=== PATIENT | female | born 1980 | race Caucasian/White ===

== ENCOUNTER 2019-03-28 09:00 | Outpatient (RCR) | payer BC, SELFPAY ==
--- NOTE | 2019-03-28 09:05 | BH.SGPN.GN ---
Behaviors/Verbalizations/Mental Status: []Client alert and oriented, neatly dressed and groomed. Eye contact good. Motor activity appropriate. Speech tangential. Affect congruent to topics being discussed, mood depressed. Thoughts linear, logical, no signs of hallucinations or delusions. Reviewed client?s symptom tracker, client indicated a 5/5 for thoughts of suicide and 2/5 for risk. Client reported this is her baseline and that I would never do it. Client Response/Progress/Benefit: []Client responded somewhat well to session, first day in IOP and trying to assimilate to the group environment. Client reports feeling ?depressed? today and shared she would like to get ?a life worth living? as her goal for IOP. Client shared she came to IOP from another IOP and stated she had little progress while she was in that program. Client shared ?everyone else was getting better and I was going nowhere.? Client reported she has daily suicidal ideations, low energy, a depressed mood, and difficulty with her relationships. Client also has a chronic medical condition that exacerbates her depressive symptoms. Client received supportive, encouraging statements from peers. Client appeared to benefit from gaining support and normalizing her symptoms. Client?s first day in IOP. Client to continue IOP to prevent decompensation and maintain safety.
--- NOTE | 2019-03-28 10:20 | BH.SGPN.GN ---
Behaviors/Verbalizations/Mental Status: [] Eye contact is good. Motor activity is appropriate. Appearance is casual. Speech is Appropriate. Mood is anxious. Affect is congruent. Thoughts are linear and logical. No evidence of psychosis. Client Response/Progress/Benefit: [] Pt was an active participant in group discussion and activity. Asked several questions about best way to take notes. Very focused on note-taking. Processed quote of the day with peers. Group worked together to identify barriers to making changes or taking action in their lives which included; lack of self-awareness, old habits, one's mindset, fear of failure, negative emotions (depression, anxiety, etc..), lack of resources, and other people. Group also identified that benefits of change which included; improved relationships, increased communication, improved mental wellness, increased confidence, and feelings of accomplishment. Discussion on the costs of not taking action or making changes which included; being stuck, no growth, lose friendships, impairs functioning, and not changes is a form of self-sabotage. Pt attentive during psychoeducation on the zones of change. Benefited from group through awareness of barriers and benefits to taking action towards mental wellness. Narrative Note: []
--- NOTE | 2019-03-28 11:23 | BH.SGPN.GN ---
Behaviors/Verbalizations/Mental Status: [Client alert and oriented. Appearance is casual, appropriate grooming. Eye contact good, at times appearing intense. Motor activity WNL. Speech appropriate rate and tone, at times becoming off topic or interrupting other. Affect congruent. mood depressed, anxious. Thoughts linear, logical, no signs of hallucinations or delusions.] Client Response/Progress/Benefit: [Pt first day of the IOP program and remained receptive of information discussed during Taking Action group. This was evidenced by input provided and questions Pt asked. She benefitted from reflecting upon the mental health benefits of taking small actionable steps towards promoting healthy change in daily life. Pt struggled at times to maintain focus on internal locus of control, however made progress in ability to challenge herself to when given feedback and identify internal barriers to change. Pt able to work with the group on completing the example Change Action Plan and apply the skills learned to her own Action Plan. Pt identified wanting to take action in her life by decreasing isolation. Shared a small step she can take as reaching out to supports. Pt shared this would help increase positive attitude and noted that her and best friend can help as a means of accountability. Recommended continued IOP tx to prevent decompensation, decrease anxiety, and increased ?knowledge of healthy coping skills.] Narrative Note: []
--- NOTE | 2019-03-28 14:58 | BH.COMM ---
Communication Note - Communication with Client Communication Note: Spoke with pt's therapist Cathi Barr at previous IOP at [facility]. ALEXUS in the chart. Per therapist pt started in IOP around 08/2018 in DBT IOP and then stepped down to ACT IOP and then eventually to DBT skills group. Reports that due to decompensation she was re-admitted to DBT IOP and eventually discharged on 03/07/19. Per therapist pt has a chronic history of passive suicidal ideations, however pt's primary challenge has been managing interpersonal relationships which has exacerbated her MH symptoms.
--- NOTE | 2019-03-28 15:04 | BH.COMM_ITS ---
Communication Note - Communication with Client Communication Note: Spoke with pt's therapist Cathi Barr at previous IOP at [facility]. ALEXUS in the chart. Per therapist pt started in IOP around 08/2018 in DBT IOP and then stepped down to ACT IOP and then eventually to DBT skills group. Reports that due to decompensation she was re-admitted to DBT IOP and eventually discharged on 03/07/19. Per therapist pt has a chronic history of passive suicidal ideations, however pt's primary challenge has been managing interpersonal relationships which has exacerbated her MH symptoms.
--- NOTE | 2019-03-31 09:05 | BH.SGPN.GN ---
Behaviors/Verbalizations/Mental Status: []Client alert and oriented, neatly dressed and groomed. Eye contact good. Motor activity appropriate. Speech within normal limits. Affect flat-tearful, mood depressed. Thoughts linear, logical, no signs of hallucinations or delusions. Reviewed client?s symptom tracker, client met with her individual therapist prior to process group. Client's symptom tracker scores for suicidal ideation and risk were within client's baseline. Client Response/Progress/Benefit: []Client responded well to session, attentive throughout session. Client reports feeling ?depressed? today. Client identified her mental health wins which were going to the pool yesterday as a form of relaxation and doing gardening work. Client shared her current stressor is that she has plans to spend time with her best friend this weekend, but client is anxious and ?I?m trying to weasel my way out of it.? Client acknowledged self-sabotaging behaviors in the past included avoiding supports and pleasurable activities. Client recognized that her anxiety is triggering an avoidance response and that if she engages in this behavior it will only provide temporary relief. Client was encouraged by this quality facilitator and her peers to challenge herself to face the anxiety head on and ?do this anxious thing.? Client stated if she goes she will feel better, but she is still on the fence about following through. Client appeared to benefit from gentle challenging and support from group. Progress limited as client just started IOP.
--- NOTE | 2019-03-31 10:13 | BH.SGPN.GN ---
Behaviors/Verbalizations/Mental Status: [Client alert and oriented, casual dress, hygiene tended to. Eye contact good. Motor activity appropriate. Speech within normal limits. Affect congruent, mood anxious, dysthymic. Thoughts linear, logical, no signs of hallucinations or delusions.] Client Response/Progress/Benefit: [Pt receptive to session, provided input and remained an active listener throughout discussion on stress. Pt struggles with focusing on externals in group environment though is making strides in improving ability to be challenged in this area. Able to brainstorm with the group positive and negative aspects of stress on physical and mental health. Pt participated in identifying current stressors impacting mental health. Pt's current stressors include: mental health, self-confidence, finances, relationship with , father, and children, health issues, and difficulties finding time for self-care. Appeared to benefit from gaining awareness of own current stressors and learning about the impact stress has on overall wellbeing. Progress noted in improved ability to identify impact of stressors on maintaining mental health and wellbeing. Recommended continued IOP tx to improve healthy coping skills, improve mood stability, and prevent decompensation.] Narrative Note: []
--- NOTE | 2019-03-31 11:28 | BH.MDN_ITS ---
Multi-Disciplinary Note - Note 30-min Individual Time Started:: 08:41 Date: 03/31/19 Purpose of session/treatment goals addressed:: The purpose of this session was to begin building rapport, as well as assess Client perception of current stressors, symptoms, supports, and means for coping. Another goal was to work with client to discuss expectations for treatment and begin creating treatment goals. Eye Contact:: Good Motor Activity:: Appropriate Appearance:: Casual Speech:: Rambling Mood:: Anxious, Depressed Affect:: Full Thoughts:: Circular - often returning to topic of her physical illness, No evidence of hallucinations/delusions noted Staff Interventions:: Therapist asked open-ended and furthering questions to gather information regarding client current symptoms, stressors, and identified supports. Used active and reflective listening, as well as empathic responses to provide support and normalize Client concerns and frustrations regarding management of ongoing mental health sx. Discussed with Client current means for coping and utilized OK techniques to assist Client with identifying and creating treatment goals. Client Response:: Pt receptive of session, actively engaged throughout and willing to openly discuss current symptoms, stressors, and events leading up to admission to IOP program. Pt reports that she forgot she had been scheduled to meet with this therapist at 0815am this morning and indicated that when becoming overwhelmed she tends to forget about appointments. Reviewed strategies for improving ability to make scheduled appointments on time such as using a business continuity planner or alarm on phone. Pt appearing receptive of these aides. Discussed with pt her expectations for IOP tx and the program format, as well as reviewed pt perspective of circumstances leading to admission to IOP program. Pt indicates that she had previously been attending various mental health programs at [facility], including their DBT intensive outpatient program and skills group. Reports these were somewhat successful but that she continues to struggle with significant anxiety and depression related to medical issues that have been becoming increasingly problematic over the past 4 years. Pt reports chronic passive thoughts of with thoughts of crashing her car into a light pool. Indicates these thoughts are fleeting in nature and that she has no active plans or intent of acting on thoughts. Reports her children are her largest motivations to life and source of meaning in her life. Additionally, endorses sx of skin picking (primarily at night), isolation, hopelessness, increased fatigue, and ruminating thoughts causing panic and anxiety. Pt did well to identify what has worked in past therapeutic settings as well as what she would like to focus on while in IOP program. Reports wanting to increase acceptance of medical conditions and learn to live a happy life with them, increase self- confidence, and better cope with anxiety. Risks/Concerns:: Pt reports a hx of chronic passive SI with fleeting thoughts of crashing her car; however, indicates no intention to act on these thoughts. Denies HI. Reports her children are her primary protective factors. Indicates an ability to maintain safety. Progress Toward Goals/Plan:: Pt new to IOP program and is therefore still adjusting to the group setting, limiting progress. She has however done well to remain engaged and provided input throughout. Pt expressed motivation to improve ability to manage mental health symptoms, specifically use of radical acceptance. Additionally, identified goals of improving overall self-confidence and ability to better regulate emotions. Recommended continued IOP to began identifying strategies to improve emotion regulation, decrease depression and anxiety, and prevent decompensation.
--- NOTE | 2019-03-31 11:28 | BH.MTP ---
Master Treatment Plan - Patient Information Program Physician:: Dr. Tony Dukes Primary Therapist:: GODWIN Currie - Psychiatric Diagnoses Psychiatric Diagnoses:: Persistent Depressive Disorder; General Anxiety Disorder; chronic adjustment disorder with anxiety; personality disorder with borderline traits Diagnosis Code(s):: F34.9 - Estimated LOS Estimated LOS (in weeks):: 6 Problem/Goal #1 - Problem/Goal #1 Stated Goal:: Client will decrease depressive symptoms causing agitation, isolation, suicidal ideations, anhedonia, poor self-esteem, and negative thoughts due to Persistent Depressive Disorder through Intensive Outpatient Program. Description of Barriers: hopelessness, several medical problems recently increasing in severity, tense relationship with her father, unable to work due to medical issues, financial strain, dificulties in parenting her son who has been diagnosed with behavioral issues related ODD. Functional Impact: Daily functioning is impacted by depression AEB reported isolation, decreased energy to complete daily tasks, passive SI, inability to work associated with depression and ongoing medical issues. Pt reports agitation secondary to anxiety and depressive sx, increased avoidance, and difficulties in regulating emotions which has created relationship tension on occasion. Goal Relevant Strengths/Supports: Pt is resilient and reports motivation to improve mental health, she is consistent with attendance, determined, willing to advocate for self, compassionate - Objectives Objective #1 Stated Objective: Pt will decrease depressive symptoms AEB pt?s score on the DSM 5 cross-cutting measure and improve pt?s daily functioning. Interventions: Through groups and individual therapy, pt will be provided with education on cognitive distortions, mistaken beliefs, and identifying and combating negative self-talk. Therapist will assist pt with getting back into the activities she once enjoyed as well as increasing healthy coping strategies. Discharge Criteria: Pt will have met this goal when pt?s score on the DSM 5 cross cutting measure for depression has been decreased and per pt?s report daily functioning has improved. Target Date: 05/16/19 Review Date: 04/29/19 Objective #2 Stated Objective: Client will learn and utilize 2-3 healthy coping strategies to manage depressive symptoms. Interventions: Therapist will assist client in learning internal coping strategies to manage depressive symptoms, along with helping client identify triggers. Discharge Criteria: Client will have achieved this goal when can verbalize and has practiced at least 2 healthy coping strategies. Target Date: 05/16/19 Review Date: 07/12/19 Problem/Goal #2 - Problem/Goal #2 Stated Goal:: Client will reduce overall frequency, intensity, and duration of anxiety causing frequent rumination and mood instability so that daily functioning is not impaired. Description of Barriers: hopelessness, several medical problems recently increasing in severity causing influx of stress/anxiety, dificulties in parenting her son who has been diagnosed with behavioral issues related ODD which contributes to anxiety, low self-esteem, difficullties believing she has any control over her anxious thoughts. Functional Impact: Daily functioning is impacted by depression AEB reported isolation, decreased energy to complete daily tasks, passive SI, inability to work associated with depression and ongoing medical issues. Pt reports agitation secondary to anxiety and depressive sx, increased avoidance, and difficulties in regulating emotions which has created relationship tension on occasion. Goal Relevant Strengths/Supports: Pt is resilient and reports motivation to improve mental health, she is consistent with attendance, determined, willing to advocate for self, compassionate - Objectives Objective #1 Stated Objective: Client will manage moments of increased stress and anxiety by learning to identify 2-3 warning signs and triggers for when she is becoming overwhelmed and implement 2-3 calming skills and problem solving strategies to realistically addressing worries. Interventions: Therapist will encourage client to use self-awareness strategies and assist client in identifying times of day, or specific thinking patterns indicating potential warning signs/triggers for increased anxiety. Therapist will teach client problem-solving strategies involving defining a problem, brainstorming solutions, selecting and implementing various solutions as well as calming interventions for reducing anxiety. Discharge Criteria: Client will have met this goal when can identify at least 2 warning signs and 2 triggers for increased stress and anxiety. When recognizing warning signs pt will be able to implement 2-3 problem solving and calming strategies for reducing anxiety and realisticly addressing worries. Target Date: 05/16/19 Review Date: 04/29/19 Objective #2 Stated Objective: Pt will decrease anxious symptoms AEB pt?s score on the DSM 5 cross-cutting measure improve pt?s daily functioning. Interventions: Through groups and individual therapy, pt will be provided education about anxiety?s impact on body and common physiological reaction to anxiety. Therapist will teach pt appropriate breathing techniques and build healthy coping skills to manage daily anxieties. Discharge Criteria: Pt will have met this goal when pt?s score on the DSM 5 cross cutting measure for anxiety has been decreased and per pt?s report daily functioning has improved. Target Date: 05/16/19 Review Date: 04/29/19
--- NOTE | 2019-04-01 10:15 | BH.SGPN.GN ---
Behaviors/Verbalizations/Mental Status: []Client alert and oriented, neatly dressed and groomed. Eye contact good. Motor activity appropriate. Speech within normal limits. Affect flat, mood anxious, dysthymic. Thoughts linear, logical, no signs of hallucinations or delusions. Client Response/Progress/Benefit: []Client responded well to session, attentive and engaged throughout. Client commented on the quote and shared to overcome anxiety one must face anxious situations. Client able to provide input to different types of anxiety disorders as well as the difference between ?normal? anxiety and anxiety disorders. Client helped the group identify examples of the various ways anxiety manifests and symptoms associated with thoughts, physical symptoms, and safety behaviors. Client gained awareness of her physical symptoms which included: stomach pain, throbbing heart, headaches, sweaty hands, shaking, runny stool, and twitching eyes. Client also identified safety behaviors she has engaged in that provide short term relief but increase anxiety over time. Client?s safety behaviors included: not responding to people right away, canceling plans, and isolating. Client appeared to benefit from gaining insight to how her anxiety manifests itself. Client?s first week in IOP, so no significant progress to document. Client to continue IOP to prevent decompensation, maintain safety, and increase mood stability.
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
--- NOTE | 2019-04-01 15:16 | BH.DR.ITP ---
Initial Treatment Plan - Patient Information Visit Information: ADMISSION DATE: 03/28/19 EXPECTED LOS: 4-6 weeks Diagnoses:: Persistent depressive disorder; HEMANT; chronic adjustment disorder with anxiety; personality disorder with borderline traits - Problems/Symptoms Problem #1:: depression Symptom:: low mood, anhedonia; low energy, lack of hope Symptom:: anxiety Problem #2:: constantly worries, lacks coping skills, feels anxious Problem #3:: personality disorder Symptom:: anger problems, interpersonal conflicts, feelings of abandonment
--- NOTE | 2019-04-04 09:05 | BH.SGPN.GN ---
Behaviors/Verbalizations/Mental Status: [Eye contact is good. Motor activity is appropriate. Appearance is casual. Speech is Appropriate. Mood is dysthymic, anxious. Affect is congruent. Thoughts are linear and logical. No evidence of psychosis. Reviewed daily check in sheet and reports suicidal ideation at a score of 3/5 which is consistent with baseline. 2/5 intent which is also consistent with baseline. Pt reports ability to maintain safety and indicates she will not act on thoughts. Does not appear a threat of harm to self or others.] Client Response/Progress/Benefit: [Pt was attentive in group discussion, providing feedback and asking appropriate questions as others shared. Emotions for today is gloomy and indicated that she is struggling to process the recent of a friend?s mother. Pt went on to share that she is feeling guilty for being out of town and therefore unable to visit her before she . Pt was however receptive of feedback and support provided by group, as well as able to identify that she could not have known or planned for it. Pt did well to additionally identify current mental health wins, reporting that she successfully followed through with going away for the weekend to visit with a close friend despite being very anxious about doing so, as well as was able to go out to various public settings throughout the weekend. Pt ability to avoid isolating behaviors and use positive encouragement displays progress. Will continue in IOP to promote healthy change behaviors, improve skill application for managing anxiety, and prevent decompensation.] Narrative Note: []
--- NOTE | 2019-04-04 10:15 | BH.SGPN.GN ---
Behaviors/Verbalizations/Mental Status: []Client alert and oriented, neatly dressed and groomed. Eye contact good. Motor activity appropriate. Speech within normal limits. Affect flat, mood euthymic then anxious. Thoughts linear, logical, no signs of hallucinations or delusions. Client Response/Progress/Benefit: []Client responded well to session, participating in discussion. Client declined to finish the activity due to self-reported anxiety. Client appeared to connect with the topic of personal pitfalls and how they can prevent mental health progress. Client identified examples of pitfalls such as negative thinking, rationalization, peer pressure to use unhealthy coping skills, and isolation. Client agreed with peers that pitfalls can occur due to habit and hopelessness. Client reported to get on the ?right path? and overcome pitfalls, one needs self-awareness. Client participated in the group activity and at the beginning shared ?this is impossible.? The group struggled to be successful at first and client reported ?I don?t have the patience for this, I?m done.? Client declined to finish the activity with peers due to self-reported anxiety. Client was encouraged to use in the moment coping skills and peers provided encouragement. Client appeared to benefit from increasing self-awareness of personal limits and pitfalls. Client able to visit a friend in a different city this weekend despite wanting to cancel due to anxiety. Client to continue IOP to prevent decompensation and increase emotional regulation.
--- NOTE | 2019-04-04 11:15 | BH.SGPN.GN ---
Behaviors/Verbalizations/Mental Status: []Pt eye contact good, casually dressed, motor activity appropriate, speech normal rate and tone, mood depressed, constricted affect, thoughts linear and intact, no evidence of delusions or hallucinations. Client Response/Progress/Benefit: []Pt was engaged throughout session AEB pt providing input during discussion and attentive to peers. Pt needed assistance from therapist at times to help reframe distorted and negative thought patterns. Pt completed a worksheet where she identified own personal pitfalls. Pt identified top 5 personal pitfalls to include: overreacting, fear of things going bad, lack of coping for OCD, and not wanting to get out of bed. Group worked together to identify strategies to overcome personal and general pitfalls which included: setting realistic expectations, positive self-talk, utilizing support system, identifying coping skills that are effective and not effective, reframing, and challenging negative thoughts. Pt needed assistance with identifying what skill to work on because pt stated it is hard to identify what to do since she knows her medical illnesses are going to kill her. With assistance from therapist pt recognized she can work on focusing on increasing positive thinking so she can enjoy the life she has now instead of constantly living in negativity because of her medical diagnoses. Benefited from identifying personal and general pitfalls and strategies to overcome these pitfalls. Will continue in IOP to challenge distorted thoughts, improve healthy coping and prevent decompensation. Narrative Note: []
--- NOTE | 2019-04-05 10:15 | BH.SGPN.GN ---
Behaviors/Verbalizations/Mental Status: []Pt eye contact good, casually dressed, motor activity appropriate, speech normal rate and tone, mood depressed, constricted affect, thoughts linear and intact, no evidence of delusions or hallucinations. Client Response/Progress/Benefit: []Pt engaged in session as evidenced by pt listening to others and providing input throughout. Pt appeared to connect with others comments about the way an individual reacts to a problem can worsen or create problems. Pt reported that anger and difficulty managing her emotions are barriers to solving problems effectively because she stated she will give up easily. Pt worked cooperatively with peers during problem solving activity, needed encouragement to focus on the positive. Showed progress with being able to stay in activity despite being frustrated. Pt seemed to benefit from learning about problem solving method and rehearsing problem solving skills in the moment. Pt to continue IOP level of care to decrease negative thinking, increase utilization of healthy coping, and prevent decompensation. Narrative Note: []
--- NOTE | 2019-04-05 11:18 | BH.SGPN.GN ---
Behaviors/Verbalizations/Mental Status: [Eye contact is good. Motor activity is appropriate, at times appearing restless. Appearance is casual. Speech is Appropriate. Mood is anxious, depressed. Affect is congruent with mood. Thoughts are linear and logical. No evidence of psychosis.] Client Response/Progress/Benefit: [ Pt was an active participant in group activity and discussion, providing input and willing to work with the group to reach their problem-solving goal. Pt appeared to make progress in her ability to challenge self not to give up when becoming overwhelmed or wanting to give up during activity. She processed challenge activity with fellow participants and made connections with the activity and potential barriers and supports to personal problem solving. Pt expressed frustration due to setbacks and negative self-talk can be a barrier to effective problem-solving and reflected upon personal experiences with such. Pt did well to identify personal barriers to effective problem solving as: self-doubt, negative self-talk, difficulty regulating emotions, and anxiety. Pt did well to brainstorm with the group strategies for improving personal problem-solving skills and appeared to benefit from identifying and discussing ways to address potential barriers. Will continue in IOP tx to promote identification and application of healthy coping skills, reduce anxiety and depression, and prevent decompensation. ] Narrative Note: []
--- NOTE | 2019-04-05 11:30 | BH.MDN ---
Multi-Disciplinary Note - Note 60-min Individual Time Started:: 08:29 Date: 04/05/19 Purpose of session/treatment goals addressed:: Purpose of this session was to assess pt current sx, stressors, and progress in IOP program. Another purpose was to gather additional information regarding MH hx, past tx hx, and successful previous interventions. Began to work on identifying and reviewing strategies for managing emotions and challenging negative thoughts while on vacation. Eye Contact:: Good, Other - at times becoming tearful when discussing current stressors and recent of a friend's mother Motor Activity:: Appropriate Appearance:: Casual Speech:: Appropriate, Tangential Mood:: Anxious, Depressed Affect:: Full Thoughts:: Logical, Circular - often circling back to physical ailments, No evidence of hallucinations/delusions noted Staff Interventions:: Asked open-ended questions to elicit additional information regarding pt perception of current sx and means for coping with recent stressors. Further inquired into mental health hx, prior tx, and past positive interventions in management of mental health sx. Utilized RI techniques to identify current barriers and begin eliciting change behaviors. Provide a safe and accepting environment for pt to process recent loss of a friend?s mother. Worked with pt to identify healthy means for coping with anxiety and stress during upcoming vacation. Client Response:: Pt receptive of session, engaged throughout. She reported she is continuing to have a difficult time in reconciling guilt she feels about going away this past weekend and not being able to say goodbye to a close friend?s mother who while pt was out of town. Pt receptive of processing and able to identify that she had no way of knowing that a would occur while she was away. Discussed that she can still provide support to her friend during this difficult time and pt discussed already reaching out to her friend. Pt additionally able to identify that she was still allowed to be happy about getting out of town and not isolating as this has been a goal for her. Discussed past mental health treatment hx and interventions she has previously found successful as well as what she did not connect with. Pt expressed connecting with some components of DBT, however found she most enjoys the group aspect of treatment. Pt shared that she has been in counseling of some form on various occasions throughout the life. She noted most enjoying expressive therapy, such as art and music related interventions. Stated that her biggest difficulty continues to be in reaching out to supports as she feels they continue to dismiss or do not seem to understand the extent of her physical and mental health related concerns. Pt appears to rely primarily on an external locus of control and looks to others for validation, which may be impacting her ability to actively see improvements in self-confidence and ability to regulate her emotions at times. Pt shared wanting to learn effective means for implementing healthy boundaries with supports, particularly her father and discussed anxiety about upcoming vacation. Pt worked with therapist to identify grounding skills she can use, keeping track of positive statements to read, and journaling when feeling overwhelmed on the trip. Risks/Concerns:: No risks or concerns noted. Chronic SI continues to be reported which is pt baseline. Denies any plan or intent. Future-oriented and discussed plans for upcoming vacation trip as well as several Dr. appointments scheduled. Protective factors include pt children. Progress Toward Goals/Plan:: Limited progress. Pt continues to struggle with catastrophizing thoughts which cause increased anxiety and appears to have diffieculties in challenging and reframing them in the moment. Pt reports onging passive thoughts of and hopelessness related to current medical issues but is becoming more receptive to learning means for acceptance and identifying strategies to better cope. Continues to report difficulties in mood regulation and communication with supports however open to identifying what is in her control that can be changed. Will continue in IOP to maintain safety, stabilize mood, and increase symptom management. Time Stopped:: 09:35
--- NOTE | 2019-04-06 09:10 | BH.SGPN.GN ---
Behaviors/Verbalizations/Mental Status: [] Eye contact is good. Motor activity is appropriate. Appearance is casual. Speech is Appropriate. Mood is depressed. Affect is flat. Thoughts are linear and logical. No evidence of psychosis. Reviewed daily check in sheet and pt reports 3/5 for suicidal ideations and 3/5 for intent. Therapist notified and this is baseline per pt report. Client Response/Progress/Benefit: [] Pt was an active participant in group discussion. Emotion for today is miserable. Shared with the group that a friend's mother had and that she has to go to the today. Shared her relationship with the and how this impacts her. Group provided feedback on grief reactions and thoughts on managing emotions. Discussed an additional medical stressor tomorrow as well as some her anxieties about her upcoming family trip. Discussed some toxic relationships among family she is visiting as well as how she reacts to the conflict. Group helped pt reframe and challenged some of her cognitive distortions. Reports being overwhelmed with stressors, anxiety, and depressive symptoms. Benefited from group feedback, support, and ecouragement. No progress noted. Will continue in IOP to maintain safety, improve daily functioning, and prevent decompensation. Narrative Note: []
--- NOTE | 2019-04-06 10:15 | BH.SGPN.GN ---
Behaviors/Verbalizations/Mental Status: []Pt eye contact good, casually dressed, motor activity appropriate, speech normal rate and tone, mood depressed and anxious, constricted affect, thoughts linear and intact, no evidence of delusions or hallucinations. Client Response/Progress/Benefit: []Client passive participant during group discussion AEB pt providing limited input, however did appear to listen to others comments. Client reported she thinks it is helpful to know she has support people to call when in need. Group identified benefits of social support as improving self-confidence, gaining different perspectives, being challenged, and comfort with knowing there is someone can talk to if in need. Client chose to not participant in the activity due to not feeling physically well. Client encouraged to provide verbal assistance to group, however chose to not to provide support to peers. Appeared to benefit from gaining awareness of barriers that keep people from seeking social support as well as connecting with peers. Progress hindered by client's disengagement at times during group session and not applying skills while in treatment environment. Client to continue IOP to improve utilization of healthy coping, challenge distorted thoughts and prevent decompensation. Narrative Note: []
--- NOTE | 2019-04-06 11:15 | BH.SGPN.GN ---
Behaviors/Verbalizations/Mental Status: []Client alert and oriented, casually dressed and groomed. Eye contact good. Motor activity appropriate. Speech within normal limits. Affect flat, mood dysthymic. Thoughts linear, logical, no signs of hallucinations or delusions. Client Response/Progress/Benefit: []Client responded well to session, overall positive contributions to group discussion. Client helped the group discuss and identify different social supports as well as the benefits of different supports. The group identified examples of personal, self-help, professional, spiritual, and co-worker social supports. Group identified benefits of receiving social support to be; new ideas, accountability, someone to listen, non-judgmental stance, sense of belonging, and feeling connected. Client reported she wants to increase her personal social support network and she plans to do this by following through with plans and commitments she makes. Client shared increasing this social support would improve her relationships. However, client shared her biggest barrier is fear of giving up. The group helped client identify strategies to overcome this barrier such as using opposite action and thought challenging. Client appeared to benefit from increasing understanding of different types of social support and identifying ways she can improve. Progress noted as client has faced more anxious situations this week instead of avoiding. Client to continue IOP to further reduce symptoms and increase functioning.
== END 2019-04-17 23:59 ==
LOC: BHIOP 09:00
PROVIDERS: Family Provider Family Medicine; PCP Family Medicine; Referring Provider Psychiatry & Neurology Psychiatry; Visit Provider Psychiatry & Neurology Psychiatry
DX: F34.1 Dysthymic disorder (principal); F41.1 Generalized anxiety disorder; F43.22 Adjustment disorder with anxiety; F60.9 Personality disorder, unspecified; R45.851 Suicidal ideations; Z79.899 Other long term (current) drug therapy; M35.00 Sjogren syndrome, unspecified; D84.9 Immunodeficiency, unspecified; E28.2 Polycystic ovarian syndrome; F42.9 Obsessive-compulsive disorder, unspecified; Z63.0 Problems in relationship with spouse or partner; G43.909 Migraine, unspecified, not intractable, without status migrainosus; N30.10 Interstitial cystitis (chronic) without hematuria; K52.9 Noninfective gastroenteritis and colitis, unspecified
CPT/HCPCS: H0035; 90832; 90837; 90853

== ENCOUNTER 2019-04-18 09:00 | Outpatient (RCR) | payer BC, SELFPAY ==
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
--- NOTE | 2019-04-18 11:12 | BH.SGPN.GN ---
Behaviors/Verbalizations/Mental Status: [Pt alert and oriented, casual dress, grooming appropriate. Eye contact good. Motor activity appropriate. Speech at times becoming elevated and tangential, AEB pt discussing frustrations with her father out of context of group discussion. Affect labile, mood agitated, anxious, depressed. Thoughts are circular and ruminative in nature, no signs of hallucinations or delusions.] Client Response/Progress/Benefit: [Pt receptive to session, providing input throughout and actively listening to group. At times she became distracted by thoughts associated with a stressor that occurred over the weekend and often interrupted others or became tangential in attempts to process this with the group. Responded well to redirection and able to return to group topic without problem. Pt appeared to connect with discussion on weighing the pro?s and cons associated with change and benefited from learning to do so through use of decisional balance sheet. She asked questions throughout. Identified a change she would like to make to improve mental health as: Accepting her physical illness as a part of her life. Pt reported potential benefits of change as better quality of life, fewer Dr. appointments, happier home life, and increased self-esteem. While the costs of not making the change included: increased depression, difficulty coping in crisis, and staying stuck. Progress noted in pt ability to respond to redirection and prevent from escalating when thinking about recent stressors. Recommended continued IOP to promote healthy change behaviors, increase ability to manage anxiety and challenge distortions, as well as prevent decompensation.] Narrative Note: []
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
--- NOTE | 2019-04-19 11:27 | BH.MDN ---
Multi-Disciplinary Note - Note 30-min Individual Date: 03/31/19
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
--- NOTE | 2019-04-20 10:14 | BH.SGPN.GN ---
Behaviors/Verbalizations/Mental Status: [Client alert and oriented, casually dressed and appropriately groomed. Eye contact good. Motor activity appropriate. Speech WNL. Affect congruent, mood anxious, depressed, agitated. Thoughts often off topic and ruminative in nature.] Client Response/Progress/Benefit: [Pt receptive of session, providing input to discussion on fear of failure and appearing to connect with comments made by fellow participants. Pt identified that she struggles with black and white thinking and often falls into the mindset that ?one setback means my whole day is ruined?. Pt expressed on several occasions that her negative outlook impacts her ability to overcome fear of failure, however despite this awareness she initially struggled when provided with an opportunity to challenge negative thoughts during challenge activity. Pt appeared to benefit from being challenged to practice becoming comfortable with potential failure by using in the moment coping when presented with setbacks. Displayed progress in ability to use the group encouragement and suggested distress tolerance skills to work through urges to give up on the activity and try to complete the task again. Recommended continued IOP tx to prevent decompensation, continue to promote healthy skills for managing anxiety and depression, and increase distress tolerance.] Narrative Note: []
--- NOTE | 2019-04-20 11:15 | BH.SGPN.GN ---
Behaviors/Verbalizations/Mental Status: []Client alert and oriented, neatly dressed and groomed. Eye contact good. Motor activity slowed. Speech slowed. Affect flat, mood euthymic. Thoughts linear, logical, no signs of hallucinations or delusions. Client Response/Progress/Benefit: []Client attentive, participating in group discussion and receptive to gentle challenging from group. Completed fear of failure worksheet. Identified that fear of failure is keeping client engaging in activities and returning to work ?if I could even work.? Client identified barriers to overcoming fear of failure which included; negative self-talk, negative assumptions about the future, fear of rejection, and fear of the unknown. Client identified things that she can do to overcome fear of failure such as; challenging negative thoughts, engaging in self-care, art and music, grounding, radical acceptance, and opposite action. Benefited from identifying the impact that fear of failure has had on her life and developing strategies to overcome this. Client continues to be receptive to feedback on how to challenge negative thinking, which can help client make progress. However, client continues to struggle with actively using thought challenging and engaging in behaviors that reinforce symptoms. Will continue IOP to prevent decompensation and increase emotional regulation skills.
--- NOTE | 2019-04-25 10:12 | BH.SGPN.GN ---
Behaviors/Verbalizations/Mental Status: [Pt alert and oriented, eye contact good, casually and neatly dressed, motor activity appropriate, speech normal rate and tone, mood euthymic, anxious, congruent affect, thoughts linear and intact, no evidence of delusions or hallucinations.] Client Response/Progress/Benefit: [Client engaged participant as shown by client?s contribution to discussion, willingness to ask questions for clarification, and taking notes throughout. Client participated in the discussion of the common myths about self-care including self-care is selfish, just involves hygiene, makes us weak, and always fun. Client worked with group to debunk the myths about self-care. Client stated she has previously struggled in applying self-care concepts to her daily life and noted that beginning to take more time for self-care has allowed for her to improve her self-confidence and boundaries. Expressed that she continues to struggle with remembering to do so thought. Client seemed to benefit from increased awareness of the importance of self-care. Client showing variable progress as shown by continued difficulties in consistent use of healthy skills, especially at times of increased anxiety or when faced with an unexpected stressor. Will continue tx to identify and challenge distorted thoughts, increase healthy coping skills, and prevent decompensation.] Narrative Note: []
--- NOTE | 2019-04-25 11:15 | BH.SGPN.GN ---
Behaviors/Verbalizations/Mental Status: []Eye contact is good. Motor activity is appropriate. Appearance is casual. Speech is slow, drawn out. Mood is dysthymic, Affect is flat. Client presents with difficulty formulating thoughts and was often forgetting words. No evidence of psychosis. Client Response/Progress/Benefit: []Client was engaged in session, volunteering and sharing perspective. Group identified various types of self-care which included spiritual, physical, emotional, social, financial, psychological, and professional. Client did well to reflect upon what she is currently doing in each self-care category and identify areas she can improve to promote balance. She discussed feeling most confident in social self-care. Shared what she is currently practicing in this area which included: reaching out to friends, asking support for help, coming to group, engaging in hobbies, and spending time with friends. Benefited from assessing current self-care balance and developing strategies to increase self-care in areas she feels are lacking. Client identified wanting to work on improving her emotional and physical areas of self-care. Client shared wants to work on thought challenging. Recommended continued IOP tx as she continues to struggle with challenging negative thoughts and changing behaviors that reinforce depression and anxiety.
--- NOTE | 2019-04-26 09:08 | BH.SGPN.GN ---
Behaviors/Verbalizations/Mental Status: []Client alert and oriented, casually dressed and groomed. Eye contact good. Motor activity appropriate. Speech within normal limits. Affect flat-tearful. Mood hopeless, depressed. Thoughts linear, logical, no signs of hallucinations or delusions. Reviewed client?s symptom tracker, and client's scores for SI were within her baseline. Client denies active suicidal ideations as of 04/26/19. Client Response/Progress/Benefit: []Client responded mostly well to session, open to gentle thought challenging from group. Client reports feeling ?crappy? today as client reports ?no wins.? Client reported she feels physically exhausted from her illness and more depressed. Client reported she has been telling herself ?I?ll never get better which reinforces her hopelessness. After gentle thought challenging by therapist, client able to identify distorted thinking and one mental health positive. Client shared she was able to reduce her anxiety after a stressful event yesterday. Client recognized that each time she chooses to challenging negative thoughts and use a healthy coping skill she supports her mental health. Appeared to benefit from thought challenging in the moment to catch and reframe distortions. Progress continues to be variable as client will report progress some days, but she demonstrates difficulty with consistent mood stability.
--- NOTE | 2019-04-26 11:10 | BH.SGPN.GN ---
Behaviors/Verbalizations/Mental Status: [Client alert and oriented, neatly dressed and groomed. Eye contact good. Motor activity appropriate. Speech within normal limits. Affect congruent, mood anxious, euthymic. Thoughts linear, logical, no signs of hallucinations or delusions. ] Client Response/Progress/Benefit: [Client responded well to session, attentive and engaged during small group session, though struggling with focusing on negatives throughout. Did well to respond to being gently challenged on distortions used during discussion. Group discussed the mental health benefits of recognizing strengths which included; improved self-esteem, better relationships, and being able to better problem solve, as well as willingness to ask for help. Group identified the barriers that have prevented them from acknowledging their strengths and successes. These barriers included; negative thoughts, feeling like a burden, negative outlook, lack of awareness of strengths. Group identified strategies to overcome barriers that prevent them from seeing strengths. These strategies included; keeping track of progress, practicing using affirmations, and reaching out to supports to challenge perspective when needed. Client able to identify personal strengths she possesses which included; kindness, creativity, willingness to ask for help, determination, and caring for others. Appeared to benefit from recognizing personal strengths and identifying strategies to overcome barriers. Will continue IOP tx to improve mood stability, further increase healthy coping skills for managing depression and anxiety, and prevent decompensation. ] Narrative Note: []
--- NOTE | 2019-04-28 09:45 | BH.COMM_ITS ---
Communication Note - Communication with Client Communication Note: Therapist was informed by program switchboard receptionist that pt called to cancel scheduled individual and group session for tomorrow morning. This therapist attempted to follow-up with pt and reschedule session for the week, however pt indicated she would not be able to reschedule and could not come in for individual or group sessions until next week due to other outside obligations. Therapist will meet with pt 05/02/19, to follow-up.
--- NOTE | 2019-05-02 09:51 | BH.TPR ---
Treatment Plan Review Date of Admission:: 03/28/19 Date of Treatment Plan Review:: 05/02/19 Admitting Diagnoses:: Persistent Depressive Disorder; General Anxiety Disorder; chronic adjustment disorder with anxiety; personality disorder with borderline traits Current Diagnoses:: Persistent Depressive Disorder; General Anxiety Disorder; chronic adjustment disorder with anxiety; personality disorder with borderline traits Patient's Response to Treatment:: Since beginning the [facility] tx program, Pt has displayed active levels of engagement in the treatment process. Pt has maintained consistent attendance. Pt has done well to remain an active participant in both individual and group sessions, though often struggles with pessimism and reluctance to identify potential positive perspectives in situations. At times she is able to make connections with material presented; however has struggled in application and motivation in daily life. Pt has remained consistent with psychiatric medication compliance. Throughout admission in [facility] treatment, she has been willing to actively apply materials discussed in both individual and group sessions. Status of Current Problems and Symptoms: Pt has made some progress in treatment which is evidenced indication of reduced symptoms, increased engagement, as well as self-report. Pt reports some decreased use of avoidance or isolation when having an intrusive thought and is less likely to escalate to crisis; however, could continue to benefit from working on this area. Additionally, pt has seen a reduction in panic attacks, as well as severity and duration of anxious thinking. She indicates fewer periods of time spent isolating to avoid, better use of healthy calming and regulation skills in times of distress and continues to work on challenging distorted thought patterns. Pt has displayed consistent difficulties in actively utilizing self-care practices when struggling with an intrusive thoughts and often externalizes which could be contributing to stress levels and ongoing anxiety Problem #1 Problem Name:: Depression Status of Goals:: Partially complete. Pt is making progress on this objective. Obj 2- Pt is able to actively identify negative self-talk messages however continues to report struggles to replace these thoughts consistently, especially when faced with thoughts related to her medical conditions and opinions of others about her self-worth. Obj 1-She is able to identify triggers for depression and self-care skills to improve overall mood and reduce sx; however continues to struggle with consistent skill application, motivation, and prioritization. Team Recommendations:: Client encouraged to continue working on this treatment goal to reinforce healthy coping skills and continue to further decrease symptoms of depression. Client and therapist currently working on thought challenging and practicing self-care skills. Will continue IOP tx to maintain gains and continue to decrease depression related sx. Problem #2 Problem Name:: Anxiety, mood dysregulation Status of Goals:: Partially complete. Pt continues to make strides in reduction of anxiety sx, though has difficulties with consistency and ongoing struggles in thought challenging in times of distress. Often continues to report use of catastrophizing and results in conflict. Obj 1- Pt reports awareness of anxiety triggers and warning signs however struggles with not seeking safety behaviors of avoidance or isolation, externalization, and irritability when anxious, though is improving in this area. Pt still needs some work in this area. Team Recommendations:: Client encouraged to continue working on this treatment goal to reinforce healthy coping skills and continue to further decrease symptoms of anxiety and reduce rumination. Client and therapist currently working on thought challenging and practicing calming skills. Will continue IOP tx to maintain gains and continue to decrease
--- NOTE | 2019-05-02 11:20 | BH.SGPN.GN ---
Behaviors/Verbalizations/Mental Status: [Client alert and oriented, casually dressed and groomed. Eye contact good. Motor activity appropriate. Speech within normal limits. Affect congruent, mood anxious, euthymic. Thoughts linear, logical, no signs of hallucinations or delusions. ] Client Response/Progress/Benefit: [Client responded well to session, contributing to discussion. Engaged in ongoing psychoeducation on the different communication styles. Client provided personal example of how communication can lead to conflict and misunderstanding. Able to gain insight into her communication style and identified falling into passive and passive-aggressive communication styles. Client shared she tends to hold in emotions and then they build up to the point of her reaching panic or result in an agreement. Client reported these communication styles have negatively impacted her mental health and relationships. Participated in group activity and able to use the activity to reflect on ways to improve communication. Attentive during psychoeducation on effective communications strategies and reported she wants to work on asking for more clarity from her in order to ensure he understands what she means. Appeared to benefit from increasing self-awareness and practicing in the moment coping skills. Will continue IOP to prevent decompensation and improve mood stability.] Narrative Note: []
--- NOTE | 2019-05-03 09:00 | BH.SGPN.GN ---
Behaviors/Verbalizations/Mental Status: [] Eye contact is good. Motor activity is appropriate. Appearance is casual. Speech is Appropriate. Mood is depressed/irritable. Affect is congruent. Thoughts are linear and logical. No evidence of psychosis. Reviewed daily check in sheet and pt reports 2/5 for suicidal ideations and 1/5 for intent. This is baseline for patient. Client Response/Progress/Benefit: [] Pt was an active participant in group discussion, however was very negative and irritable. Emotion reported to be I don't give a shit. Hopeless. Reports that she applied to 2 jobs and is thinking about returning to work. Reports I don't want my to work so many hours its destroying our relationship. Irritable when discussing going back to work stating I don't care if I work and it kills me. 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 began to ruminate on all the negatives in her life and her previous IOP treatments at [facility] stating I've been in IOP since December and I just don't give a shit. Incongruent affect as she was laughing with peer while she was discussing her negative thoughts, stressors, and memory issues. Also focused on getting an appointment with her outpatient psychiatrist. Not using skills, not attempting to identify and combat negative thoughts and cognitive distortions, gets defensive if other provide feedback or attempt to challenge thoughts, and is struggling with appropriate social interactions seeking pity from others. No progress noted. No benefit from group as she was unwilling to accept feedback. Will continue in IOP to maintain safety, prevent decompensation, and increase daily coping. Narrative Note: []
--- NOTE | 2019-05-03 11:17 | BH.SGPN.GN ---
Behaviors/Verbalizations/Mental Status: []Client alert and oriented, neatly dressed and groomed. Eye contact good. Motor activity appropriate. Speech within normal limits. Affect flat, mood dysthymic. Thoughts linear, logical, no signs of hallucinations or delusions. Client Response/Progress/Benefit: []Client responded well to session, taking notes and contributing occasionally. Client appeared to connect with the activity from second group and helped the group identify benefits of having a strong foundation of internal and external coping skills. Client helped the group discuss the different categories of coping skills and provided examples. Client reported she struggles with challenging negative thoughts ?because it really hard? but she was willing to try different strategies. Client created a coping skills ?menu? for the five categories of coping skills. Client selected cooking, yard work, guided imagery, not judging herself so harshly, and telling herself ?thoughts a thought not fact? as her coping skills to try. Client appeared to benefit from increasing her repertoire of healthy coping skills. Client demonstrating progress as shown by her improved insight and knowledge of healthy coping skills. Will continue IOP tx to prevent decompensation, improve emotional regulation, and maintain safety.
--- NOTE | 2019-05-10 09:10 | BH.SGPN.GN ---
Behaviors/Verbalizations/Mental Status: [] Eye contact is good. Motor activity is appropriate. Appearance is casual. Speech is Appropriate. Mood is incongruent. Affect is full. Reports depression and SI however is smiling, laughing, and interacting with peer. Thoughts are linear and logical. No evidence of psychosis. Reviewed daily check in sheet and pt reports 2/5 for suicidal ideations and 2/2 for intent. This is below baseline for pt. Client Response/Progress/Benefit: [] Pt was an active participant in group discussion. Provided feedback with some redirection from therapist. Reports stress this weekend related to getting bills from previous hospitalizations. Discussed struggles with marriage and communication with , however per pt does not wish to pursue family counseling. Reports that they went to [facility] together. however pt believes that her is depressed and shared his difficulty stopping thoughts which increases his anxiety. Pt was unable to identify what role she has in helping her or things she could do to alleviate his stress. Focused on how his mood impacts hers and leads to isolation. Reported some suicidal thoughts over the weekend. When asked what skills or strategies she utilized to get through this crisis she simply stated the only thing that gets me through is thinking about my kids and fear that whatever suicide method I choose will be painful. Not utilizing any skills learned in this IOP or past. Unclear on her reasons for minimal motivation to attempt to utilize skills to improve mood. Incongruent mood as she reports depression and anxiety however is making jokes and laughing with peer during the group. Minimal progress noted.Will continue in IOP to prevent decompensation, provide support, continue to encourage use of skills, and improve daily functioning. Narrative Note: []
--- NOTE | 2019-05-10 10:10 | BH.SGPN.GN ---
Behaviors/Verbalizations/Mental Status: []Client alert and oriented, casually dressed and groomed. Eye contact good. Motor activity appropriate. Speech within normal limits. Affect constricted, mood dysthymic. Thoughts linear, logical, no signs of hallucinations or delusions. Client Response/Progress/Benefit: []Client responded well to session, engaged in discussion. Client connected with the quote and shared she agreed that mental health growth does not just happen by chance. Client shared ?different forces have to work together.? Client shared that life is a full of internal and external forces and gave health conditions as an example of external. Client, along with other group members, provided input and suggestions when identifying what internal/external forces are and the impact that these forces have on their mental health. Examples of negative forces included; high expectations, negative thoughts, toxic people, mental health symptoms, health issues, and fear. Client identified reaching out to supports, IOP, routine, using coping skills, taking medication, and self-talk as positive forces. The group started, but they did not finish the activity. Benefited from increased awareness of how different positive and negative forces impact mental health. Client appears to be progressing as shown by her increased receptiveness to challenging her perspective. Will continue tx to increase emotional regulation, maintain safety, and improve daily functioning.
--- NOTE | 2019-05-10 11:08 | BH.SGPN.GN ---
Behaviors/Verbalizations/Mental Status: [Client alert and oriented, casually dressed and groomed. Eye contact good. Motor activity appropriate. Speech within normal limits. Affect congruent and mood euthymic, anxious. Thoughts linear, logical, no signs of hallucinations or delusions.] Client Response/Progress/Benefit: [Client willing to participate in activity, provided some input at during discussion though remaining a mostly passive participant. She listened attentively to peers. Client completed reflection worksheet identifying positive and negative forces impacting life and mental wellness. Client identified positive forces that aid in progressing toward mental health goals include: family, therapy, journaling, her art, and positive self-talk skills. Client indicated negative forces include: self-doubt, perfectionism, relationship issues, physical health, OCD/anxiety/depression. Client reported she believes she is moving forward towards her goals through active application of self-care and remembering to ?ride the wave?. Client seemed to benefit from increased awareness of personal positive and negative forces in life and impact they have on mental health and wellness. Client to continue IOP level of care to maintain gains, continue to challenge intrusive thought patterns, and prevent decompensation.] Narrative Note: []
--- NOTE | 2019-05-10 16:07 | BH.COMM ---
Communication Note - Communication with Client Communication Note: Pt reports she is unable to pay the $60 copay as required by the outpatient provider previously recommended for aftercare individual therapy. Pt additionally noted needing assistance with seeking employment as she has limited experience and does not currently have a completed resume. Pt provided with a list of mental health agencies in the [facility] who use an income based sliding fee scale. Additionally given information on the [facility] and resources provided.
--- NOTE | 2019-05-12 09:10 | BH.SGPN.GN ---
Behaviors/Verbalizations/Mental Status: [] Eye contact is good. Motor activity is appropriate. Appearance is neat. Speech is Appropriate. Mood is anxious. Affect is congruent. Thoughts are linear and logical. No evidence of psychosis. Reviewed daily check in sheet and pt reports 2/5 for suicidal ideations and 2/5 for intent. Incongruent for mood as she is smiling, laughing, joking with peers and her overall check-in was positive. Refer to individual therapy note from this AM. Client Response/Progress/Benefit: [] Pt was an active participant in group discussion. Overall positive check-in and was able to identify some mental health wins. Completed a vision board and discussed this with peers in the group. Future-oriented. Discussed some stressors however was able to laugh about them and not get upset and ruminate. Also discussed the possibility of gene therapy for her medical issues which she is optimistic about. Connected with and provided insight into discussion today on managing emotions related to interaction with other people and not avoiding or isolating due to others. Very engaged and provided appropriate feedback today. Progress noted per pt report. Will continue in IOP to maintain safety, encourage use of skills, and prevent decompensation. Narrative Note: []
--- NOTE | 2019-05-12 11:17 | BH.SGPN.GN ---
Behaviors/Verbalizations/Mental Status: [Eye contact is good. Motor activity is appropriate. Appearance is casual. Speech is Appropriate, normal rate and tone. Mood is euthymic, joking. Affect is congruent, bright. Thoughts are linear and logical. No evidence of psychosis.] Client Response/Progress/Benefit: [Client attentive, engaged during discussion and activity. Contributed to discussion on how the group was successful in the activity because they were encouraging and had growth-mindset thoughts. Client did well to apply cognitive restructuring to reframe previously identified fixed thought. Pt transformed fixed thought from previous group to a growth thought of ?I?m a burden? to ?Needing help doesn?t make me a burden, we all need help at times?. Client participated as the group brainstormed strategies to promote growth-mindset thinking. Client selected the strategy of practicing identifying and reframing negative thoughts to improve growth-mindset thinking. Benefitted from discussing benefits of growth mindset and brainstorming strategies for prompting growth-mindset. Client displaying progress as client reports increased application of healthy coping skills and reduction of mh sx. Will continue IOP tx to prevent decompensation and improve mood stability.] Narrative Note: []
--- NOTE | 2019-05-12 15:22 | BH.MDN_ITS ---
Multi-Disciplinary Note - Note 30-min Individual Time Started:: 07:58 Date: 05/12/19 Purpose of session/treatment goals addressed:: Purpose of session to assess current sx, stressors, discuss treatment progress, and solidify aftercare plan. Eye Contact:: Good Motor Activity:: Appropriate Appearance:: Casual Speech:: Appropriate Mood:: Anxious, Euphoric Affect:: Congruent Thoughts:: Linear, Logical, No evidence of hallucinations/delusions noted Staff Interventions:: Therapist elicited clients thoughts and emotions about progress since entering [facility]. Therapist worked collaboratively with client to identify strategies that can help pt maintain success and continue to make progress with mental health goals. Therapist provided support by using active listening. Applied concepts of [place] to promote healthy change. Client Response:: Client receptive of session, engaged throughout. She reported that since entering [facility] she has seen an increase in her use of healthy coping skills. Client shared she has decreased depressive and anxious symptoms as well as overall improved mood stability. Client reported she been able to do so by reminding herself to utilize the skills she has learned when recognizing warning signs and triggers. Discussed use of deep breathing, positive affirmations, using her art journal, and referring back to her vision board daily. Pt brought vision board in with her and shared various empowering items on board. Noted that one quote in particular continues to motivate her when feeling down. ?every flower must grow through dirt?. Notes this reminds her to keep going when times are tough or she feels discouraged. Pt shared although she is anxious and say about discharging from [facility] next week, but recognizes she is more emotionally and mentally stable. Client recommended to follow up with her outpatient providers for continuity of care. Clientt sees psychiatrist, Dr. Tony Dukes, in [place] for medication management. She sees her psychiatrist monthly, next appointment is in May. [facility] [place] [facility]. Risks/Concerns:: Client denies suicidal thoughts, plan, or intention as of his date 05/12/19. Progress Toward Goals/Plan:: Client has demonstrated progress with overall improved mood stability and decreased anxiety. Client has shown increased ability to identify distortions and warning signs and apply skills to maintain stability and prevent crisis escalation. Client has decreased isolative behaviors as evidenced by client getting out of the house to spend time with friends. 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 Client reports increased use of healthy coping skills. The plan is for client to discharge from IOP next week and continue individual counseling with established community counselor and psychiatry services. Will continue IOP tx until then to maintain stability, further reduce negative self-talk, and prevent decompensation prior to establishment with outpatient provider. Time Stopped:: 08:31
--- NOTE | 2019-05-17 09:00 | BH.SGPN.GN ---
Behaviors/Verbalizations/Mental Status: [] Eye contact is good. Motor activity is appropriate. Appearance is casual. Speech is Appropriate. Mood is euthymic. Affect is full. Thoughts are linear and logical. No evidence of psychosis. Reviewed daily check in sheet and pt reports 2/5 for suicidal ideations and 2/5 for intent, which is baseline. Affect is incongruent as she is laughing, smiling, and interacting well with peers. Check in mood for today was happy. Client Response/Progress/Benefit: [] Pt was an active participant in group discussion. Emotion for today is happy. Shared that her weekend and stressful and overwhelming. Reports a stomach illness which impacted her physically and emotionally. Continues to report conflict with her and poor communication. She had attempted to get him into therapy with her psychiatrist however he declines. She states he doesn't know how to talk to someone with depression. They argue frequently. Her children on on vacation with thier father so she has more free time. Reports that her mood is improved and she is managing her emotions and stressors more appropriately. More hopeful and optimistic. Participated in group discussion on anger mgmt skills, thoughts stopping, thought challenging, catastrophizing, and setting boundaries.Progress noted per pt report. Benefited from group support, encouragement, and feedback. Will continue in IOP to maintain gains, prevent decompensation, and transition to aftercare. Narrative Note: []
--- NOTE | 2019-05-17 11:15 | BH.SGPN.GN ---
Behaviors/Verbalizations/Mental Status: [Eye contact good. Motor activity is appropriate. Appearance is casual. Speech is appropriate rate and tone. Mood is depressed. Affect is congruent with mood. Thoughts are linear and logical. No evidence of psychosis.] Client Response/Progress/Benefit: [Pt engaged throughout activity and discussion portions of group. She indicated connecting with group topic of resilience; however, at times struggled with negative thinking which impacted ability to identify healthy resilience factors. Pt contributed to reflection similarities between the chaos during group activity and how we react to chaos in daily life. Indicated connecting with ability to ?keep going? despite multiple distractions/stressors. She did well to work within the small group setting to discuss the factors in building Resilience and benefitted from reviewing strategies for developing and promoting a resilient lifestyle. Pt identified that if we ?make connections? we are less likely to isolate which can aid in reducing depression. Identified additional benefit of resilience as improving physical health. Pt continues to make some progress in challenging her tendency to focus on the negative or fall into fix thinking patterns. Would benefit from continued IOP tx to prevent decompensation, continue to?promote consistency of healthy skill application, thought challenging, and emotion regulation.] Narrative Note: []
--- NOTE | 2019-05-18 08:12 | BH.DS_ITS ---
Discharge Summary - Demographics Date of Admission:: 03/31/19 Discharge Date: 05/18/19 Presenting Problems at Admission:: Pt is a 39-year-old female with a history of Depression, Anxiety, OCD, and traits associated with Borderline personality disorder. Pt additionally has several serious medical conditions that she reports have directly impacted her mental health. She was referred by her outpatient psychiatrist due to ongoing difficulties in managing mental health sy mptoms of depression, ruminating thoughts causing anxiety and panic, and fleeting suicidal ideations. At admission, client reported her depression had been improving while previously attending the [facility] IOP & ACT programs, but feels she was unable to sustain progress and has since experienced an influx in mental health symptoms. Reports depression and anxiety are always present, but have been worsening over the past several weeks due to ongoing medical related issues and marital conflict. She endorsed a depressed mood, anhedonia, increased anxiety and panic, lack of motivation, crying spells, suicidal ideations, isolative behaviors, and hopelessness. Pt indicated at time of admission, that symptoms were greatly impacting her ability to meet financial, social, and familial responsibilities. Discharge Diagnoses:: Persistent depressive disorder F34.1; Generalized Anxiety Disorder; OCD; chronic adjustment disorder with anxiety; excoriation disorder; R/O Borderline Personality Disorder Reason for Discharge:: Client has made progress towards her treatment goals as shown by reduced frequency and intensity of suicidal ideations, depressive symptoms, and anxiety. Pt displaying increased ability to better come down from crisis and is more able to identify dialectical ways of looking at a situation. Client reports readiness to return to weekly outpatient counseling with support of her friends and family and no longer meets criteria for IOP level of care. - Treatment Progress During Treatment & Response: Client responded well to treatment and was actively engaged in groups AEB her overall consistent attendance and report of increased ability to see things in a more positive perspective. Client began IOP tx with a primary focus on externalizing her major stressors and identifying her medical symptoms as being the primary factor maintaining her depression; however, with consistent attendance and engagement in both individual and group settings she has been able to identify factors within her own control and apply thought challenging and reframing techniques to begin to improve her ability to see stressors as manageable. Pt reports feeling more positive when in the group setting and is continuing to work to apply the skills she has learned to her daily life. Throughout duration of program, pt progress has been variable as she often struggles in using distress tolerance skills during times of unexpected stress or increased interpersonal conflict. Despite inconsistent emotion regulation, pt has reported that in the past few weeks she has prevented herself from escalating to the point of crisis and has been able to more quickly calm herself down when recognizing escalation. Pt indicated decreased isolation and improved ability to reach out to supports she has not seen in awhile. In individual sessions, client was receptive to learning new coping skills and was engaged in her treatment. Pt also recognized that she made progress in using a perspective challenging to see the positives in daily life and has noted decreased SI as a result. At discharge, client?s DSM-5 symptoms scores decreased overall by a total of 5 points. Client?s DSM-5 scores for depression decreased, going from 8/8 at admission to 6/8 at discharge. Additionally, client?s suicidal ideation decreased from admission to discharge going from 3/4 to 2/4. Client?s anxiety has decreased since admission as well going from 1112 to 912 at discharge. Despite overall decreased scores, Pt DSM-5 symptom measure has increased by 5 points since mid-point review, further indicating pt difficulties with consistent skill application and use of emotion regulation and distress tolerance skills. This influx in score may additionally be due to pt recent illness over the weekend further exacerbating her physical health which she often reports impacting mental health sx as well. Issues Still to be Addressed:: Ongoing, client can continue to benefit from weekly counseling to promote consistency and reinforcement of healthy coping skills as well as increase ability to identify and utilize internal coping mechanisms. Client self-reports history of inconsistent follow through when becoming stressed of upset and indicates a tendency to want to ?give up?, so she can benefit from ongoing accountability. Client has started catching her negative, self-depreciating talk and she can continue to work on challenging and replacing cognitive distortions. Client can also continue working on increasing healthy communication with Ongoing, client can continue to benefit from weekly counseling to promote consistency and reinforcement of healthy coping skills as well as increase ability to identify and utilize internal coping mechanisms. Client self-reports history of inconsistent follow through when becoming stressed of upset and indicates a tendency to want to ?give up?, so she can benefit from ongoing accountability. Client has started catching her negative, self-depreciating talk and she can continue to work on challenging and replacing cognitive distortions. Client can also continue working on increasing healthy communication with her supports as this is often a primary trigger for emotion dysregulation. her supports as this is often a primary trigger for emotion dy sregulation. Discharge Recommendations/Instructions:: Pt recommended to follow up with her outpatient providers for continuity of care. Client sees psychiatrist, Dr. Tony Dukes, in [place] for medication management. She sees her psychiatrist monthly, pt's next appointment is in May. Scheduled for an intake assessment this week at [facility] in [place] for individual counseling. Client is recommended to follow up with this service on a weekly basis. Lastly, client is encouraged to continue applying coping skills on a daily basis, practice self- care, and increase communication with social supports. Discharge Handout: Complete Discharge Handout with client on aftercare options and continuity of care.
--- NOTE | 2019-05-18 09:10 | BH.SGPN.GN ---
Behaviors/Verbalizations/Mental Status: []Client alert and oriented, neatly dressed and groomed. Eye contact good. Motor activity appropriate. Speech within normal limits. Affect flat-tearful, mood anxious. Thoughts linear, logical, no signs of hallucinations or delusions. Reviewed client?s symptom tracker, no risk for suicidal ideation, plan, or intent as of 05/18/19. Client's scores for suicidal ideations were within client's baseline. Client Response/Progress/Benefit: []Client responded well to session, tearful, but receptive to feedback from peers. Client reports feeling ?overwhelmed? today because it is her last day at [facility]. Client reported she is scared of maintaining progress and shared ?I feel like I?ll have to come back.? Client receptive to therapist normalizing her anxiety and challenging distorted thoughts. Client acknowledged that there are additional stressors occurring in her life right now, including medical issues with her nephew, that are impacting her mood currently. Client recognized that she has made progress since starting IOP. Client identified gaining coping skills and managing stressors more effectively as progress. Client appeared to benefit from gentle thought challenging and connecting with peers. Client to discharge from [facility] today as she has made strides towards her treatment goals and no longer meets criteria for [facility] level of care.?
--- NOTE | 2019-05-18 09:45 | BH.IGGP_ITS ---
Aftercare Plan - Demographics Treatment End Date:: 05/18/19 Psychiatrist:: Lisa Carrion Psychiatrist Office #:: [phone] [facility]/IOP Therapist:: Sun Dumont Therapist Phone #:: [phone] - Medications Home Medications: Home Medications Clonazepam [Klonopin] 1 mg PO BID PRN PRN 04/01/19 Fluvoxamine Maleate [Luvox] 100 mg PO QHS 04/01/19 Olanzapine [Zyprexa] 2.5 mg PO QHS 04/01/19 traZODone [Desyrel] 100 mg PO QHS 04/01/19 - Plan Details Progress/Aftercare Plan Details:: Casandra, It has not always been the easiest or most painless journey in improving your mental health and letter ways to cope, but nonetheless you have never given up! Your ongoing willingness to fight through the tough times and keep reaching out for help is something to be proud of! You have shown progress towards your treatment goals while in IOP in several different ways. This includes increasing self-awareness of triggers, how thoughts impact emotions, and identifying the way your perspective can begin to shift when you open yourself up to the possibility of positivity. Throughout the program, you have learned the benefits of reframing thoughts, self-compassion, and self-care. Casandra, you have been able to apply coping skills to prevent further escalation of symptoms and decrease how long stressors impact your emotion and mental health. You have challenged yourself each day not to give up and to identify what one good thing you can focus on to keep yourself motivated. Casandra, I have seen you make strides to reach out to supports and engage in activities you have previously avoided, despite being fearful or pessimistic about the results. I highly encourage you to follow up with [facility] to begin with a consistent outpatient therapist on a weekly basis. You are also encouraged to continue with medication compliance and seeing Dr. Dukes. Remember to continue to work to challenge, replace, and reframe distorted thoughts that reinforce depression and negative core beliefs. Strategies for Success:: 1. Awareness is garrison. Awareness of the behaviors and thoughts that keep you stuck. You can?t use the coping skills effectively if you aren?t aware of when you need them. Remember that your family can also help you to identify warning signs when they notice them. 2. Challenge those negative thoughts! Look at your thoughts from a different perspective. Would you say this to your children or a close friend if they were feeling this way? 3. Opposite action! Often times our first reaction is to cope in an unhealthy way to a strong emotion. Engage in something that will help you feel and think differently. Examples: Art, reading, listen to uplifting music, talk to a trusted support. 4. Use those mindfulness skills! Not just when in crisis, but daily. Examples include: progressive muscle relaxation, visualization, deep breathing, 5 senses, etc. 5. Consistency!! Consistently using coping skills, engaging in self-care, touching base with your emotions, exerting energy, and taking medications. 6. Give yourself some credit, you aren't where you want to be, but you aren't where you started! GOOD LUCK! 7. - Appointments Appointments/Referrals to Other Services:: 1. Follow up with for ongoing psychiatric services. 2. Follow up with [facility] in [place] for individual therapy on a weekly basis.
--- NOTE | 2019-05-18 10:15 | BH.SGPN.GN ---
Behaviors/Verbalizations/Mental Status: [] Eye contact is good. Motor activity is appropriate. Appearance is casual. Speech is Appropriate. Mood is anxious/irritable. Affect is congruent. Thoughts are linear and logical. No evidence of psychosis. Client Response/Progress/Benefit: [] Pt was an active participant in group activity and discussion. Provided insight on quote of the day. Group worked together to identify what are pitfalls when it comes to mental health recovery which included; lack of awareness, lack of motivation, cognitive distortions, poor boundaries, toxic relationships, shutting down, isolating, and negative thoughts. Group discussed the impact of pitfalls and how these can impact progress. Attentive during psychoeducation. Pt participated in group activity. Pt admitted to getting irritable and frustrated with the activity. At one point wanted to quit. Was able to relate this to feelings associated with encountering a mental health pitfall. Group identified that when they encountered challenges during the activity they began to; nugent things, began to focus on failing, had increased negative thoughts, and became overstimulated and overwhelmed. Related these to emotions and actions that occur when they encounter mental health pitfalls. Benefited from group by increased awareness on recognizing and understanding the impact of mental health pitfalls. Narrative Note: []
--- NOTE | 2019-05-18 11:14 | BH.SGPN.GN ---
Behaviors/Verbalizations/Mental Status: [Client alert and oriented, casually dressed and groomed. Eye contact good. Motor activity appropriate. Speech within normal limits. Affect congruent to topic being discussed, mood dysthymic, anxious. Thoughts linear, logical, no signs of hallucinations or delusions. ] Client Response/Progress/Benefit: [Pt receptive of session, engaged throughout and provided input to group discussion. Attentive to peers comments and suggestions. Pt reflected with group on pitfalls experienced in activity and how these are pitfalls common in daily life. She completed a worksheet where pt identified personal pitfalls. Personal pitfalls included: guilt about not working, self-comparison, and over reliance on others when experiencing stress or setbacks. Client noted that these pitfalls at times feel overwhelming and result in a desire to give-up. She was able to identify that this could change if she started to shift her perspective and become more open to the possibility of working through her identified pitfalls. Group worked together to identify strategies to overcome personal and general pitfalls. Pt identified personal strategies to try as: setting boundaries, dialectical thinking, opposite action, and looking back at her IP binder and DBT resources. Benefited from identifying personal and general pitfalls and strategies to over these pitfalls. Pt has made progress in IOP and is continuing to put effort in challenging herself to actively use skills learned. She will discharge from IOP today.] Narrative Note: []
== END 2019-05-18 14:00 | disposition home or self-care (01) ==
LOC: BHIOP 09:00
PROVIDERS: Family Provider Family Medicine; PCP Family Medicine; Referring Provider Psychiatry & Neurology Psychiatry; Visit Provider Psychiatry & Neurology Psychiatry
DX: F34.1 Dysthymic disorder (principal); F41.1 Generalized anxiety disorder; F43.22 Adjustment disorder with anxiety; F60.9 Personality disorder, unspecified; R45.851 Suicidal ideations; Z79.899 Other long term (current) drug therapy; F42.9 Obsessive-compulsive disorder, unspecified
CPT/HCPCS: H0035; 90832; 90834; 90853